=== PATIENT | female | born 1995 | race Caucasian/White ===

== ENCOUNTER → 2017-05-17 | Outpatient (CLI) | payer OTHER ==
--- NOTE | 2017-05-17 12:53 | RAD ---
Obstetrical ultrasound, 05/17/2017: History: Positive test, pelvic pain and cramping Transabdominal and transvaginal scans were obtained. The uterus contains a single gestational sac. The gestational sac contains a yolk sac and a tiny pole measuring 3 mm. This suggests a gestational age of 5-6 weeks. No cardiac activity is identified, however, that is not considered abnormal at this early stage. No subchorionic hemorrhage is identified. The ovaries are of normal size. Blood flow is present in both ovaries. No adnexal mass is seen. A trace amount of fluid was noted in the cul-de-sac. This amount of fluid can be on a physiologic basis. IMPRESSION: Early intrauterine as described above.
== END | disposition home or self-care (01) ==
LOC: US 10:48
PROVIDERS: ATTEND Nurse Practitioner Family
DX: O26.891 Other specified pregnancy related conditions, first trimester (principal); Z3A.01 Less than 8 weeks gestation of pregnancy
CPT/HCPCS: 76801; 76817

== ENCOUNTER → 2017-06-20 | Outpatient (CLI) | payer OTHER ==
[~2017-06-20] MED LIST: IOHEXOL 300 MG/ML 75 ML VIAL. IV ONE
--- NOTE | 2017-06-20 16:49 | RAD ---
CTA of the chest with and without contrast Clinical indications: Chest pain for 6 months. Shortness of air for 8 weeks. The patient is 10 weeks . Increased d-dimer. Technique: The patient was double shielded. Noncontrast axial localizer was performed. After IV infusion of 75 cc of Omnipaque 300, helical CT scanning of the chest was performed using the CT pulmonary embolism protocol. A coronal MIP reconstruction was generated. PQRS Compliance Statement: One or more of the following individualized dose reduction techniques were utilized for this examination: 1. Automated exposure control 2. Adjustment of the mA and/or kV according to patient size 3. Use of iterative reconstruction technique Comparison: None available. Findings: No pulmonary embolism is evident. No focal aneurysmal dilatation or dissection of the thoracic aorta is seen. The heart size is normal and no pericardial effusion is seen. No enlarged thoracic lymphadenopathy is seen. Mild residual anterior mediastinal thymus tissue is seen which is a normal finding in this age group. No lung consolidation or lung mass or pleural effusion or pneumothorax is seen. The proximal bronchial tree is patent. No osteolytic process is seen. IMPRESSION: No pulmonary embolism. No acute lung infiltrate.
== END | disposition home or self-care (01) ==
LOC: CT 15:24
PROVIDERS: ATTEND Nurse Practitioner Family
DX: O26.891 Other specified pregnancy related conditions, first trimester (principal); R07.9 Chest pain, unspecified; Z3A.10 10 weeks gestation of pregnancy
CPT/HCPCS: 71275; Q9967

== ENCOUNTER → 2017-07-03 | Outpatient (CLI) | payer OTHER ==
--- NOTE | 2017-07-03 14:01 | CARD ---
MR#: [id number] Date of Study: 07/03/2017 Ordering Physician: AMERICA NAME, Referring Physician: AMERICA NAME, Tech: JENNIFER Best APPROVED REPORT EXAM: Two-dimensional and M-mode echocardiogram with Doppler and color Doppler. Other Information Quality : GoodHR: 82bpm INDICATION Dyspnea Chest Pain 2D DIMENSIONS Left Atrium(2D)2.6 (1.6-4.0cm)IVSd1.0 (0.7-1.1cm) Aortic Root(2D)2.8 (2.0-3.7cm)LVDd4.7 (3.9-5.9cm) LVOT Diameter2.2 (1.8-2.4cm)PWd1.0 (0.7-1.1cm) LVDs3.1 (2.5-4.0cm)FS (%) 35.3 % SV67.5 mlLVEF(%)64.6 (>50%) Aortic Valve AoV Peak Deon.146.7cm/sAoV VTI30.4cm AO Peak GR.8.6mmHgLVOT Peak Deon.97.5cm/s LVOT VTI 21.96cmAO Mean GR.4mmHg SHERRY (VMAX)2.79sf0XBI (VTI)2.74cm2 Mitral Valve MV E Qwcgnzyf54.2cm/sMV DECEL OENM485re MV A Qpmssrbj68.8cm/sE/A Ratio1.6 Pulmonary Valve PV Peak Vcfaaekq956.8cm/sPV Peak Grad.6mmHg Tricuspid Valve TR P. Vbxndibk447th/sTR Peak Gr.6mmHg Pulmonary Vein S1 Zcaeqmyy04.5cm/sD2 Srgtmslx38.2cm/s LEFT VENTRICLE The left ventricle is normal size. There is normal left ventricular wall thickness. The left ventricu lar systolic function is normal. The ejection fraction is estimated at 60-65%. There is normal LV seg mental wall motion. The left ventricular diastolic function and filling is normal for age. RIGHT VENTRICLE The right ventricle is normal size. There is normal right ventricular wall thickness. The right ventr icular systolic function is normal. ATRIA The left atrium size is normal. The right atrium size is normal. The interatrial septum is intact wit h no evidence for an atrial septal defect or patent foramen ovale as noted on 2-D or Doppler imaging. AORTIC VALVE The aortic valve is normal in structure and function. Doppler and Color Flow revealed no significant aortic regurgitation. There is no significant aortic valvular stenosis. There is no aortic valvular v egetation. MITRAL VALVE The mitral valve is normal in structure and function. There is no evidence of mitral valve prolapse. There is no mitral valve stenosis. Doppler and Color-flow revealed mild mitral regurgitation. TRICUSPID VALVE The tricuspid valve is normal in structure and function. Doppler and Color Flow revealed trace tricus pid regurgitation. There is no tricuspid valve prolapse or vegetation. There is no tricuspid valve st enosis. PULMONIC VALVE The pulmonic valve is not well visualized. Doppler and Color Flow revealed trace pulmonic valvular re gurgitation. There is no pulmonic valvular stenosis. GREAT VESSELS The aortic root is normal in size. The IVC is dilated. The IVC collapses <50% with inspiration. PERICARDIAL EFFUSION There is no pleural effusion. There is no evidence of significant pericardial effusion. Critical Notification Critical Value: No <Conclusion> The left ventricular systolic function is normal. The ejection fraction is estimated at 60-65%. There is normal LV segmental wall motion. Mild mitral regurgitation. Trace tricuspid regurgitation. There is no evidence of significant pericardial effusion. Signed by : David Noonan, Electronically Approved : 07/03/2017 14:01:04
== END | disposition home or self-care (01) ==
LOC: ECHO 08:49
PROVIDERS: ATTEND Physician Assistant
DX: I34.0 Nonrheumatic mitral (valve) insufficiency (principal); R06.02 Shortness of breath; R07.9 Chest pain, unspecified
CPT/HCPCS: 93306

== ENCOUNTER → 2019-09-23 | Outpatient (CLI) | payer MEDICAID ==
--- NOTE | 2019-09-23 16:37 | RAD ---
ABDOMEN SUPINE UPRIGHT INDICATION: Abdominal pain. COMPARISON: None. TECHNIQUE: Supine and upright views of the abdomen were obtained. FINDINGS: Nonobstructive bowel gas pattern. No free air. Moderate colonic stool burden. Lower chest demonstrates no acute abnormality. No acute osseous abnormality. IMPRESSION: Nonobstructive bowel gas pattern. Moderate colonic stool burden. Electronically signed by: Nestor Manning MD (09/23/2019 4:34 PM) [id number]
== END ==
LOC: DXRAD 14:19
PROVIDERS: ATTEND Physician Assistant Medical
DX: R10.32 Left lower quadrant pain (principal)
CPT/HCPCS: 74019

== ENCOUNTER → 2019-09-24 | Outpatient (CLI) | payer MEDICAID ==
--- NOTE | 2019-09-24 11:00 | RAD ---
Examination: CT ABDOMEN PELVIS WO CONTRAST History: Left-sided abdominal pain with hematuria Comparison/Correlation: None Findings: Axial images of the abdomen and pelvis were obtained without contrast. Sagittal and coronal reformatted images were provided. Small hiatal hernia is present. Visualized lung bases are clear. Spleen, adrenal glands and pancreas are unremarkable. Fatty infiltration of liver noted. Gallbladder fossa is unremarkable At the right renal inferior pole, there is a 0.4 cm diameter nonobstructing calyceal calculus. At the left renal lower pole, there is a 0.25 cm diameter calculus. Punctate left renal superior pole calyceal calculus appears to be present. There is no hydronephrosis or hydroureter. No perinephric stranding. Slight left renal cortical thinning is evident as compared to the right kidney. Urinary bladder is mostly decompressed limiting evaluation. No radiopaque calculus identified within the urinary bladder. Appendix is normal. No bowel obstruction or extraluminal gas. No ascites. Small amount of pelvic free fluid is present. There is a left adnexal cyst measuring 2.7 cm diameter. Smaller adjacent cyst is also present measuring 1 cm diameter. Alternatively, this may represent a septated cyst. Bilateral sacroiliac joint vacuum phenomenon is present. Mildly exaggerated lumbar lordosis is evident. Impression: Nonobstructive bilateral renal calculi. If a collecting system mass is a persistent concern, consider further evaluation with CT IVP urogram. Pelvic free fluid. Left adnexal cyst and follicle or possibly septated cyst. This is presumably physiologic. Correlate with symptoms in determining interval follow-up. Small hiatal hernia. Fatty infiltration of the liver. PQRS Compliance Statement: One or more of the following individualized dose reduction techniques were utilized for this examination: 1. Automated exposure control 2. Adjustment of the mA and/or kV according to patient size 3. Use of iterative reconstruction technique Electronically signed by: Orlin Hess MD (09/24/2019 10:57 AM) [id number]
== END ==
LOC: CT 10:08
PROVIDERS: ATTEND Physician Assistant Medical
DX: K76.0 Fatty (change of) liver, not elsewhere classified (principal); K44.9 Diaphragmatic hernia without obstruction or gangrene; N20.0 Calculus of kidney; N94.89 Other specified conditions associated with female genital organs and menstrual cycle; R31.9 Hematuria, unspecified
CPT/HCPCS: 74176

== ENCOUNTER 2019-10-30 13:15 | Emergency (ER) | payer MEDICAID ==
[~2019-10-30] VITALS: Ht 154.9 cm; Wt 90.9 kg
[2019-10-30 13:15] VITALS: BP 111/68
[2019-10-30] MEDS ORDERED: TETRACAINE 0.5% OPHTH SOLUTION 4ML BOTTLE. ONE (13:27)
[2019-10-30] MEDS ORDERED: FLUORESCEIN 1MG EYE STRIP. ONE (13:27)
[2019-10-30] MEDS ORDERED: TETRACAINE 0.5% OPHTH SOLUTION 4ML BOTTLE. OD ONE (13:30)
[2019-10-30] MEDS ORDERED: FLUORESCEIN 1MG EYE STRIP. OD ONE (13:30)
[2019-10-30] MEDS ORDERED: ERYTHROMYCIN OD (13:41)
--- NOTE | 2019-10-30 13:41 | PHYS DOC ---
Past History Past Medical History: No Pertinent History General Adult EDM: Chief Complaint: FOREIGN BODY/EYES HPI: HPI: Patient is a 24-year-old female who presents to the emergency department for evaluation. Just prior to arrival she was mowing her lawn when she was struck in the right eye by debris from the lawnmower. She reports some irritation of her right eye and some blurred vision. She denies any significant pain or any other injuries. Her tetanus is up-to-date. Review of Systems: Review of Systems: Constitutional: Denies fever or chills Eyes: As per HPI HENT: Denies nasal congestion or sore throat Integument: Denies rash Neurologic: Denies headache, focal weakness or sensory changes Heart Score: Risk Factors: Risk Factors: DM, Current or recent (<one month) smoker, HTN, HLP, family history of CAD, obesity. Risk Scores: Score 0 - 3: 2.5% MACE over next 6 weeks - Discharge Home Score 4 - 6: 20.3% MACE over next 6 weeks - Admit for Clinical Observation Score 7 - 10: 72.7% MACE over next 6 weeks - Early Invasive Strategies Current Medications: Current Meds: Current Medications Medications (Trade) Dose Ordered Sig/Adele Start Time Stop Time Status Last Admin Dose Admin Fluorescein Sodium (Ful-Digna 1mg) 1 strip 1X ONCE 10/30/19 13:30 10/30/19 13:32 DC Tetracaine HCl (Tetracaine) 1 drop 1X ONCE 10/30/19 13:30 10/30/19 13:32 DC Allergies: Allergies: Allergies Coded Allergies Type Severity Reaction Last Updated Verified Penicillins Allergy Unknown 06/20/17 Yes Physical Exam: PE: PHYSICAL EXAM: CONSTITUTIONAL: Well developed, well nourished HEAD: normocephalic, atraumatic EENT: PERRL, EOMI. the right conjunctivae is mildly injected, the left conjunctivae is normal color, sclerae non-icteric; moist mucous membranes. There is some generalized blurred vision. On fluorescein examination, there is an irregularly shaped corneal abrasion overlying the right cornea, with a few linear components, there is no Sid sign, there is no deformity to the round shape of the cornea. There is no evidence of ocular foreign body, either overlying the cornea, or in the recesses of the eye. The eyelid was everted for examination. The corneal abrasion does overlie the visual axis. SKIN: No rash; no diaphoresis NEURO: Alert; normal speech and cognition; EKG: EKG: [] Radiology/Procedures: Radiology/Procedures: [] Course & Med Decision Making: Course & Med Decision Making The patient's eye will be irrigated. I discussed diagnosis with the patient, home care plan, the need for prompt ophthalmology follow-up and return precautions. Dragon Disclaimer: Dragon Disclaimer: This electronic medical record was generated, in whole or in part, using a voice recognition dictation system. Departure Departure: Impression: Primary Impression: Corneal abrasion Disposition: HOME/RESIDENCE PRIOR TO ADM Condition: STABLE Referrals: MI COLLINS DO Patient Instructions: Eye - Corneal Abrasion Scripts [erythrom.[email or web address]] No Conflict Check 1 INCH OD Q4HRS W/A for 7 Days Prov: ASAF ENGLE MD 10/30/19 Justification of Admission: Justification of Admission: Justification of Admission Dx: N/A ASAF ENGLE MD Oct 30, 2019 13:41
== END 2019-10-30 13:58 | disposition home or self-care (01) ==
LOC: ER 13:15
DX: S05.01XA Injury of conjunctiva and corneal abrasion without foreign body, right eye, initial encounter (principal); Z88.0 Allergy status to penicillin; W22.8XXA Striking against or struck by other objects, initial encounter; Y93.89 Activity, other specified; Y92.89 Other specified places as the place of occurrence of the external cause; Y99.8 Other external cause status
CPT/HCPCS: 99283

== ENCOUNTER → 2019-12-18 | Outpatient (CLI) | payer MEDICAID ==
[~2019-12-18] MED LIST changes: +ERYTHROMYCIN OD; -IOHEXOL 300 MG/ML 75 ML VIAL. IV ONE
[2019-12-18 10:42] LABS: ALBUMIN 3.6 g/dL (3.4-5.0); ALBUMIN/GLOBULIN RATIO 0.8 (1.0-1.7); CREATININE 1.1 mg/dL (0.6-1.0); POTASSIUM 3.6 mmol/L (3.5-5.1); TOTAL BILIRUBIN 0.3 mg/dL (0.2-1.0); TOTAL PROTEIN 7.9 g/dL (6.4-8.2)
[2019-12-18 16:20] LABS: FREE T4 1.01 ng/dL (0.76-1.46); THYROID STIM HORMONE (TSH) 2.665 uIU/mL (0.358-3.740)
[2019-12-19 00:07] LABS: HEMOGLOBIN A1C 5.3 % (4.8-5.6)
== END | disposition home or self-care (01) ==
LOC: LAB 09:36
PROVIDERS: ATTEND Registered Nurse
DX: Z79.899 Other long term (current) drug therapy (principal)
CPT/HCPCS: 36415; 80053; 83036; 84439; 84443; 84480

== ENCOUNTER → 2020-05-13 | Outpatient (CLI) | payer MEDICAID ==
[2020-05-13 08:58] LABS: BASO % 0 % (0-3); EOS # 0.1 x10^3/uL (0.0-0.7); EOS % 1 % (0-3); HEMATOCRIT 40.5 % (36.0-47.0); HEMOGLOBIN 13.8 g/dL (12.0-15.5); LYMPH # 1.7 x10^3/uL (1.0-4.8); LYMPH % 25 % (24-48); MEAN CORPUSCULAR HEMOGLOBIN 30 pg (25-35); MEAN CORPUSCULAR HGB CONC 34 g/dL (31-37); MEAN CORPUSCULAR VOLUME 88 fL (79-100); MONO # 0.4 x10^3/uL (0.0-1.1); MONO % 5 % (0-9); NEUT # 4.6 x10^3uL (1.8-7.7); NEUT % 69 % (31-73); PLATELET COUNT 279 x10^3/uL (140-400); RED BLOOD COUNT 4.63 x10^6/uL (3.50-5.40); RED CELL DISTRIBUTION WIDTH 12.9 % (11.5-14.5); WHITE BLOOD COUNT 6.8 x10^3/uL (4.0-11.0)
[2020-05-13 14:26] LABS: FREE T4 1.04 ng/dL (0.76-1.46); THYROID STIM HORMONE (TSH) 2.258 uIU/mL (0.358-3.740)
[2020-05-13 20:07] LABS: FSH 7.4 mIU/mL (.); LUTEINIZING HORMONE 5.7 mIU/mL (.); PROGESTERONE 0.2 ng/mL (.); TESTOSTERONE TOTAL 42 ng/dL (8-48)
[2020-05-14 13:13] LABS: INSULIN LEVEL 13.4 uIU/mL (2.6-24.9)
== END ==
LOC: LAB 07:38
PROVIDERS: ATTEND Physician Assistant Medical
DX: E34.9 Endocrine disorder, unspecified (principal); L68.0 Hirsutism; N93.8 Other specified abnormal uterine and vaginal bleeding; Z91.09 Other allergy status, other than to drugs and biological substances
CPT/HCPCS: 36415; 82672; 83001; 83002; 83525; 84144; 84403; 84439; 84443; 85025; 86003